=== PATIENT | male | born 1960 | race Caucasian/White ===

== ENCOUNTER 2021-01-14 13:36 | Emergency (ER) | payer SELFPAY ==
[~2021-01-14] VITALS: Ht 175.3 cm; Wt 86.2 kg
[2021-01-14 14:25] LABS: BASOPHILS ABSOLUTE AUTO 0.05 K/mm3 (0.00-0.23); BASOPHILS PERCENT AUTO 1 % (0-2); EOSINOPHILS ABSOLUTE AUTO 0.09 K/mm3 (0.00-0.68); EOSINOPHILS PERCENT AUTO 1 % (0-6); Hematocrit 37.9 % (37.0-53.0); Hemoglobin 11.8 g/dL (13.5-17.5); IMMATURE GRAN ABSOLUTE AUTO 0.03 K/mm3 (0.00-0.10); IMMATURE GRAN PERCENT AUTO 0 % (0-1); LYMPHOCYTES ABSOLUTE AUTO 2.47 K/mm3 (0.84-5.20); LYMPHOCYTES PERCENT AUTO 31 % (21-46); MONOCYTES ABSOLUTE AUTO 0.51 K/mm3 (0.16-1.47); MONOCYTES PERCENT AUTO 6 % (4-13); Mean Corpuscular HGB 25.3 pg (26.0-34.0); Mean Corpuscular HGB Conc 31.1 g/dL (31.5-36.5); Mean Corpuscular Volume 81 fL (80-100); NEUTROPHILS ABSOLUTE AUTO 4.92 K/mm3 (1.96-9.15); NEUTROPHILS PERCENT AUTO 61 % (41-73); Platelet Count 327 K/mm3 (150-400); RDW Coefficient Variation 20.5 % (11.7-14.2); RDW Standard Deviation 58.4 fL (35.1-46.3); Red Blood Cell Count 4.67 M/mm3 (4.30-5.90); White Blood Cell Count 8.07 K/mm3 (4.00-11.30)
[2021-01-14 14:36] LABS: Anion Gap 9 mmol/L (6-16); Blood Urea Nitrogen 8 mg/dL (8-24); Bun/Creatinine Ratio 10.2 (12.0-20.0); CO2, Blood 28 mmol/L (21-32); Calcium, Blood 8.9 mg/dL (8.5-10.1); Chloride, Blood 100 mmol/L (98-108); Creatinine, Blood 0.79 mg/dL (0.60-1.20); Glomerular Filtration Rate >60 (60-); Glucose, Blood 100 mg/dL (70-99); Potassium, Blood 3.1 mmol/L (3.5-5.5); Sodium, Blood 137 mmol/L (136-145); Troponin I <0.015 ng/mL (0.000-0.040)
[2021-01-14] MEDS ORDERED: PANT20 PO (17:23)
== END 2021-01-14 18:25 | disposition home or self-care (01) ==
LOC: ER 13:36
PROVIDERS: Student in an Organized Health Care Education/Training Program
DX: K20.90 Esophagitis, unspecified without bleeding (principal); R00.0 Tachycardia, unspecified; F10.10 Alcohol abuse, uncomplicated; Y90.8 Blood alcohol level of 240 mg/100 ml or more
CPT/HCPCS: 36415; 71045; 71260; 80048; 84484; 85025; 85379; 93005; 93010; 99285-25; A9270; G0480; J7030; Q9967

== ENCOUNTER 2021-01-23 08:45 | Emergency (ER) | payer OTHER ==
[~2021-01-23] VITALS: Ht 205.7 cm; Wt 83.9 kg
[~2021-01-23 08:45] MED LIST: PANT20 PO
== END 2021-01-23 11:35 | disposition home or self-care (01) ==
LOC: ER 08:45
DX: F10.139 Alcohol abuse with withdrawal, unspecified (principal); Z77.29 Contact with and (suspected) exposure to other hazardous substances; Z59.00 Homelessness unspecified
CPT/HCPCS: 96374; 99284-25; J2060; J7030